=== PATIENT | female | born 1995 | race Two or more races ===

== ENCOUNTER 2024-12-11 14:37 | Emergency (ER) | payer OTHER ==
[~2024-12-11] VITALS: Ht 165.1 cm; Wt 77.1 kg
[2024-12-11 14:58] VITALS: BP 141/88; TEMP 98.1; O2SAT 99
[2024-12-11] MEDS ORDERED: CEPH-570 PO (15:11)
[2024-12-15] MEDS ORDERED: CEPH-570 PO (23:27)
== END 2024-12-11 15:28 | disposition home or self-care (01) ==
LOC: ER 14:37
DX: T63.301A Toxic effect of unspecified spider venom, accidental (unintentional), initial encounter (principal); Y92.89 Other specified places as the place of occurrence of the external cause; L03.115 Cellulitis of right lower limb; F31.9 Bipolar disorder, unspecified; F41.9 Anxiety disorder, unspecified; Z60.2 Problems related to living alone

== ENCOUNTER 2024-12-23 22:13 | Emergency (ER) | payer OTHER ==
[~2024-12-23] VITALS: Ht 165.1 cm; Wt 77.1 kg
[~2024-12-23 22:13] MED LIST: CEPH-570 PO
[2024-12-23 23:26] VITALS: BP 140/87; TEMP 97.9; O2SAT 97
== END 2024-12-23 23:26 | disposition home or self-care (01) ==
LOC: ER 22:21
DX: R53.83 Other fatigue (principal); T50.905A Adverse effect of unspecified drugs, medicaments and biological substances, initial encounter; F31.9 Bipolar disorder, unspecified; Y92.89 Other specified places as the place of occurrence of the external cause